=== PATIENT | male | born 1960 | race Caucasian/White ===

== ENCOUNTER 2018-02-07 03:33 | Emergency (ER) | payer OTHER ==
[~2018-02-07] VITALS: Ht 175.3 cm; Wt 63.5 kg
[2018-02-07] MEDS ORDERED: OXYCODON-ACETA1 EAC1 PO (05:33)
[2018-02-07] MEDS ORDERED: PROCTOFOAM-HC F10 GM RECTAL (05:33)
[2018-02-07 05:40] VITALS: BP 127/74
== END 2018-02-07 05:40 | disposition home or self-care (01) ==
LOC: M.ERS 03:33
DX: K64.9 Unspecified hemorrhoids (principal)